=== PATIENT | male | born 1950 | race Caucasian/White ===

== ENCOUNTER → 2017-06-08 | Day surgery (SDC) | payer MEDICARE, OTHER ==
[~2017-06-08] VITALS: Ht 167.6 cm; Wt 89.2 kg
[2017-06-08] VITALS (8 sets, daily range): BP systolic 102–139; BP diastolic 58–77; PULSE 51–72; TEMP 97.2–98.7
[~2017-06-08] MED LIST: ASPIRIN 32325 MG/TAB PO; ATENOLOL PO; CALCIPOTRIENE0.005% TP; CARDURA 2MG2 MG PO; CLOBETASOL 0.05% TD; CLOPIDOGREL PO; DIOVAN160 MG PO; EPA FISH OIL1 SGL PO; FLEXERIL10 MG PO; GLUCOPHAGE500 MG/TAB PO; HCTZ 25MG TAB25 MG PO; KENALOG XX; LANTUS100 U/ML SC; LEVEMIR100 U/ML SC; LIDEX TP; LIPITOR 40MG TA40 MG PO; LIPITOR40 MG PO; LISINOPRIL5 MG PO; LOPRESSOR 225 MG/TAB PO; METFORMIN1000 MG PO; NORVASC 10MG10 MG PO; OSTEO-BI-FLEX 21 TAB PO; PRILOSEC 20MG20 MG PO; PRINIVIL10 MG PO; RANEXA1000 MG PO; SORIATANE25 MG PO; SYNTHROID0.075 MG/T PO; TOPROL XL 50MG50 MG PO; TOPROL XL25 MG PO; ULTRAM50 MG PO; VIAGRA100 MG PO; ZESTRIL 20MG TA20 MG PO; [UNRECOGNIZED DRUG - OTHER] PO; [UNRECOGNIZED DRUG - SUPPLY] TD
== END ==
LOC: SDCO 06:14
DX: C67.9 Malignant neoplasm of bladder, unspecified (principal); N30.20 Other chronic cystitis without hematuria; I25.10 Atherosclerotic heart disease of native coronary artery without angina pectoris; I10 Essential (primary) hypertension; G47.33 Obstructive sleep apnea (adult) (pediatric); M13.849 Other specified arthritis, unspecified hand; N40.1 Benign prostatic hyperplasia with lower urinary tract symptoms; R33.8 Other retention of urine; R35.0 Frequency of micturition; L40.9 Psoriasis, unspecified; Z79.82 Long term (current) use of aspirin; Z79.4 Long term (current) use of insulin; Z87.891 Personal history of nicotine dependence; Z80.52 Family history of malignant neoplasm of bladder; Z83.3 Family history of diabetes mellitus; Z84.1 Family history of disorders of kidney and ureter; Z95.1 Presence of aortocoronary bypass graft
CPT/HCPCS: J0690; J1885; J2405; J2704; J3010; J7030; Q9967

== ENCOUNTER 2020-09-18 06:15 | Day surgery (SDC) | payer MEDICARE, OTHER ==
[2020-09-18] VITALS (8 sets, daily range): BP systolic 110–119; BP diastolic 53–62; PULSE 51–63; TEMP 96.7–98.4
[~2020-09-18] VITALS: Ht 167.6 cm; Wt 88.6 kg
[~2020-09-18 06:15] MED LIST changes: +ASPIRIN E.C. 8181 MG PO; -SYNTHROID0.075 MG/T PO; +SYNTHROID0.125 MG/T PO; -TOPROL XL 50MG50 MG PO; +TOPROL XL100 MG PO
[2020-09-18] MEDS ORDERED: NIZORAL SHAMPO120 M1 TP (07:20)
[2020-09-18] MEDS ORDERED: TRIAMCINOLONE (07:24)
--- NOTE | 2020-09-18 09:45 | NUR ---
[place] [facility] [place]. Pt awake and alert. Reports "A little bit" of discomfort to groin. Pt denies need for pain medication at this time. CBI infusing and moderate rate. Drainage to mcfarlane bag clear. Water, juice and crackers with peanutbutter given per request. in room. Will continue to monitor. Call light within reach.
--- NOTE | 2020-09-18 10:00 | NUR ---
200ml of CBI placed in mcfarlane and mcfarlane clamped. Mcfarlane then DC'd with all parts intact. Pt tolerated well. Denies further needs. Call light within reach.
--- NOTE | 2020-09-18 10:15 | NUR ---
Pt resting. Denies needs. More water given. Call light within reach.
--- NOTE | 2020-09-18 10:30 | NUR ---
250ml of pale pink urine out. No clots noted. Pt encouraged to continue drinking water. Pt voices understanding.
--- NOTE | 2020-09-18 10:45 | NUR ---
Pt continues to rest. Denies needs. Call light within reach.
--- NOTE | 2020-09-18 11:15 | NUR ---
400ml of pale pink urine, no clots. Pt up to dress with assist. Will continue to monitor. Call light within reach.
--- NOTE | 2020-09-18 11:30 | NUR ---
Discharge instructions reviewed. Pt voices understanding. IV site discontinued with all parts intact.
--- NOTE | 2020-09-18 11:50 | NUR ---
Pt escorted to private car via wheel chair. Pt accompanied home by his wheel chair.
== END 2020-09-18 11:50 | disposition home or self-care (01) ==
LOC: SDCO 06:15
DX: C67.9 Malignant neoplasm of bladder, unspecified (principal); I20.9 Angina pectoris, unspecified; I25.2 Old myocardial infarction; I10 Essential (primary) hypertension; E78.5 Hyperlipidemia, unspecified; G47.33 Obstructive sleep apnea (adult) (pediatric); M19.90 Unspecified osteoarthritis, unspecified site; E11.9 Type 2 diabetes mellitus without complications; E03.9 Hypothyroidism, unspecified; Z79.890 Hormone replacement therapy; Z79.899 Other long term (current) drug therapy; Z95.1 Presence of aortocoronary bypass graft; Z99.89 Dependence on other enabling machines and devices; Z79.82 Long term (current) use of aspirin; Z79.4 Long term (current) use of insulin; Z80.52 Family history of malignant neoplasm of bladder; Z83.3 Family history of diabetes mellitus
CPT/HCPCS: C1769; J0690; J1100; J2405; J2704; J3010; J7030; Q9967